=== PATIENT | female | born 1955 | race Caucasian/White ===

== ENCOUNTER 2023-01-23 11:44 | Outpatient (CLI) | payer MEDICARE, BC, SELFPAY ==
--- NOTE | 2023-01-23 11:30 | CRLHL7_ITS ---
For Patients: As a result of the Century Cures Act, medical imaging exams and procedure reports are released immediately into your electronic medical record. You may view this report before your referring provider. If you have questions, please contact your health care provider. BILATERAL SCREENING MAMMOGRAM WITH COMPUTER-AIDED DETECTION AND TOMOSYNTHESIS TECHNIQUE: CC and MLO views were obtained. These mammographic images have been obtained using full-field digital technique. These mammographic images were interpreted with the benefit of computer-aided detection. Breast tomosynthesis was used in this interpretation. COMPARISON FILM: 01/25/20, 12/07/18, 12/01/17, 02/01/16, 11/01/14. FINDINGS: There are scattered areas of fibroglandular density. IMPRESSION: There is no radiographic evidence for malignancy. ASSESSMENT: BI-RADS Category 2: Benign RECOMMENDATION: Routine screening mammogram in 1 year. A lay language report of this examination will be provided to the patient. STANLEY BURR M.D. Diagnostic Radiologist [email or web address] Transcribed: 01/27/2023, 6:[address]/Dictated by: Stanley Burr MD @ 01/27/2023 9:16:[address]/Dictated by: Stanley Burr MD @ 01/27/2023 9:16:00 AM (Electronically Signed)
== END 2023-01-23 11:45 | disposition home or self-care (01) ==
LOC: MAMMO 11:45
PROVIDERS: PCP Nurse Practitioner Family; Visit Provider Nurse Practitioner Family
DX: Z12.31 Encounter for screening mammogram for malignant neoplasm of breast (principal)
CPT/HCPCS: 77063; 77067

== ENCOUNTER 2023-08-14 11:40 | Outpatient (CLI) | payer MEDICARE, BC, SELFPAY | END 2023-08-14 11:41 | disposition home or self-care (01) | LOC: NFLDREF 08-15 07:40 | PROVIDERS: PCP Nurse Practitioner Family; Referring Provider Nurse Practitioner Family; Visit Provider Nurse Practitioner Family | DX: N39.0 Urinary tract infection, site not specified (principal) | CPT/HCPCS: 81001; 87086 ==

== ENCOUNTER 2024-02-26 09:29 | Outpatient (CLI) | payer MEDICARE, BC, SELFPAY | END 2024-02-26 09:30 | disposition home or self-care (01) | PROVIDERS: PCP Nurse Practitioner Family; Visit Provider Nurse Practitioner Family | DX: E78.5 Hyperlipidemia, unspecified (principal); I10 Essential (primary) hypertension; E11.65 Type 2 diabetes mellitus with hyperglycemia; Z13.21 Encounter for screening for nutritional disorder; Z13.29 Encounter for screening for other suspected endocrine disorder | CPT/HCPCS: 80053; 80061; 82043; 82570; 82607; 84443 ==

== ENCOUNTER 2024-03-15 08:48 | Outpatient (CLI) | payer MEDICARE, BC, SELFPAY | END 2024-03-15 08:49 | disposition home or self-care (01) | LOC: RAD 08:51 | PROVIDERS: PCP Nurse Practitioner Family; Visit Provider Nurse Practitioner Family | DX: I51.7 Cardiomegaly (principal); I35.1 Nonrheumatic aortic (valve) insufficiency; I35.8 Other nonrheumatic aortic valve disorders; I10 Essential (primary) hypertension | CPT/HCPCS: 93306 ==

== ENCOUNTER 2024-07-21 13:33 | Outpatient (CLI) | payer MEDICARE, BC, SELFPAY | END 2024-07-21 13:34 | disposition home or self-care (01) | LOC: MAMMO 13:34 | PROVIDERS: PCP Nurse Practitioner Family; Visit Provider Nurse Practitioner Family | DX: Z12.31 Encounter for screening mammogram for malignant neoplasm of breast (principal) | CPT/HCPCS: 77063; 77067 ==

== ENCOUNTER 2024-08-12 13:42 | Outpatient (CLI) | payer MEDICARE, BC, SELFPAY ==
--- NOTE | 2024-08-12 14:00 | CRLHL7_ITS ---
For Patients: As a result of the Century Cures Act, medical imaging exams and procedure reports are released immediately into your electronic medical record. You may view this report before your referring provider. If you have questions, please contact your health care provider. XR DXA BONE MINERAL DENSITY (BMD) Current height (in): 62.0. Weight (lb): 196.0. Menopause age: 50. Ethnicity: White. Reason for exam: Osteopenia. 1. Have you had a previous hip or vertebral fracture? No. 2. Have you had any fractures during your adult life which did not result from significant trauma (e.g., auto accident)? No. 3. Did either of your parents have a hip fracture? No. 4. Do you smoke? No. 5. Have you ever taken Glucocorticoids? No. 6. Do you have rheumatoid arthritis? No. 7. Do you have secondary osteoporosis? No. 8. Do you drink 3 or more alcoholic drinks per day? No. 9. Are you being treated for osteoporosis? No. 10. Have you ever taken any of the following medications: Actonel, Evista, Fosamax, Miacalcin, Reclast, Boniva, Forteo, HRT (i.e. estrogen/hormone therapy), Protelos, Prolia, Vitamin D, Calcium, other ??? please specify. ANSWER: Yes, vitamin D, calcium. 11. Do you have any of the following medical conditions: Anorexia or bulimia, asthma or emphysema, end stage renal disease, hyperparathyroidism, any seizure disorders, cancer, inflammatory bowel diseases, hysterectomy, other ??? please specify. ANSWER: No. 12. What was your maximum height (inches)? 62. 13. Do you perform weight bearing exercise regularly? Yes. 14. Do you regularly consume dairy products? Yes. 15. Do you drink caffeinated beverages? Yes. 16. At what age did your period start? 15. 17. Are you premenopausal? No. 18. How many full-term pregnancies have you had? 2. 19. Have you ever missed your period for more than 6 months in a row (not including or menopause)? No. TECHNIQUE: Bone mineral density study was performed using the [employer]. FINDINGS: The results of the study expressed as bone mineral density (BMD) are as follows: Lumbar spine L1 to L4: BMD: 1.258 g/cm2. T-score: 1.9. Z-score: 3.9 Neck Left: BMD: 0.903 g/cm2. T-score: 0.5. Z-score: 2.2 Total Left: BMD: 1.128 g/cm2. T-score: 1.5. Z-score: 2.9 Radius Right 33%: BMD: 0.646 g/cm2. T-score: -0.8. Z-score: 1.2 IMPRESSION: Normal bone density. Stanley Mcguire M.D. Diagnostic Radiologist [email or web address] Transcribed: 10:34 am DW/Dictated by: Stanley Mcguire MD @ 08/13/2024 10:03:00 AM (Electronically Signed)
== END 2024-08-12 13:43 | disposition home or self-care (01) ==
LOC: RAD 13:43
PROVIDERS: PCP Nurse Practitioner Family; Visit Provider Nurse Practitioner Family
DX: M85.80 Other specified disorders of bone density and structure, unspecified site (principal); Z78.0 Asymptomatic menopausal state
CPT/HCPCS: 77080

== ENCOUNTER 2025-02-25 07:06 | Outpatient (CLI) | payer MEDICARE, BC, SELFPAY ==
--- NOTE | 2025-02-25 07:15 | CRLHL7_ITS ---
For Patients: As a result of the Century Cures Act, medical imaging exams and procedure reports are released immediately into your electronic medical record. You may view this report before your referring provider. If you have questions, please contact your health care provider. INDICATION: Pancreatic cyst. COMPARISON: Report from CT scan of the abdomen and pelvis dated 01 February 2025. TECHNIQUE: Abdominal MRI with T1 in- and out of phase, T2, diffusion weighted, and progressively delayed post-contrast images. Intravenous gadolinium administered. Heavily T2 weighted 3D MRCP images. FINDINGS: Mild diffuse fatty infiltration of the liver. No focal abnormalities identified in the visualized portions of the liver, spleen, and right adrenal gland. 1.6 cm left adrenal nodule shows signal dropout on the out of phase images. 6 mm cyst in the tail of the pancreas. 8 mm cyst in the head of the pancreas. The pancreas is otherwise unremarkable. Small bilateral renal cysts measuring up to 1.2 cm. The kidneys otherwise unremarkable. No hydronephrosis. No adenopathy. No intra or extrahepatic bile duct dilation with the common bile duct measuring 5 mm. No filling defects in the biliary system. Normal size of the main pancreatic duct. Impression : 1. Two small pancreatic cysts measuring up to 8 mm. Recommend follow-up MRI in 2 years to begin documentation of stability. 2. 1.6 cm left adrenal adenoma. 3. No bile duct dilation. No choledocholithiasis. Normal size of the main pancreatic duct. Management of Incidental Pancreatic Cysts: A White Paper of the ACR Incidental Findings Committee. Journal of the [employer] [place] [employer]. Volume 14, Number 7, November 2016, pages [phone]. Dictated by Rk Valencia MD @ 02/26/2025 5:24:38 PM (Electronically Signed)
== END 2025-02-25 07:07 | disposition home or self-care (01) ==
LOC: MRI 07:08
PROVIDERS: PCP Nurse Practitioner Family; Visit Provider Nurse Practitioner Family
DX: K86.9 Disease of pancreas, unspecified (principal); E27.8 Other specified disorders of adrenal gland
CPT/HCPCS: 74183; A9575

== ENCOUNTER 2025-04-15 10:26 | Outpatient (CLI) | payer MEDICARE, BC, SELFPAY | END 2025-04-15 10:27 | disposition home or self-care (01) | PROVIDERS: PCP Nurse Practitioner Family; Visit Provider Nurse Practitioner Family | DX: Z00.00 Encounter for general adult medical examination without abnormal findings (principal); I10 Essential (primary) hypertension; E78.5 Hyperlipidemia, unspecified; E11.9 Type 2 diabetes mellitus without complications; Z79.4 Long term (current) use of insulin; Z13.0 Encounter for screening for diseases of the blood and blood-forming organs and certain disorders involving the immune mechanism | CPT/HCPCS: 80053; 80061; 82607; 84443; 85025 ==